=== PATIENT | female | born 1990 | race African-American/Black ===

== ENCOUNTER 2017-05-11 08:17 | Emergency (ER) | payer MEDICAID ==
[~2017-05-11] VITALS: Ht 160 cm; Wt 61.2 kg
[2017-05-11 08:17] VITALS: BP 116/75
== END 2017-05-11 09:14 | disposition home or self-care (01) ==
LOC: ER 08:19
DX: J02.0 Streptococcal pharyngitis (principal); J30.9 Allergic rhinitis, unspecified
CPT/HCPCS: A4606; Z7610